=== PATIENT | female | born 1945 | race African-American/Black ===

== ENCOUNTER 2017-04-07 13:18 | Emergency (ER) | payer MEDICARE ==
[~2017-04-07] VITALS: Ht 165.1 cm; Wt 83.0 kg
[2017-04-07 13:23] VITALS: BP 176/83; PULSE 76; RESP 20; TEMP 98.4; O2SAT 97
--- NOTE | 2017-04-07 13:39 | PD ---
HPI Chief Complaint: Cold / Flu Symptoms Time Seen by Provider: 13:33 Travel History International Travel<30 days: No Contact w/Intl Traveler<30days: No Traveled to known affect area: No History of Present Illness HPI PATIENT WAS TAKING CARE OF HER GRANDKIDS WHO WERE SICK 5-7 DAYS AGO, NOW THEY ARE IMPROVING BUT NOW SHE HAS HAD 3 DAYS OF PROD COUGH (UNKNOWN SPUTUM COLOR SINCE PATIENT DOESN'T LOOK AT IT), BODY ACHES, RUNNY NOSE, (BODY ACHES GENERALIZED AND RATED 5/10). DENIES N/V/D/CP/ABDPAIN/VARGAS/....DENIES ANY ALLEVIATING/AGGRAVATING FACTORS PCP: PMHX: HYPOTHYROID, HTN AND DM PFSH Social History Tobacco Use: No Allergies-Medications (Allergen,Severity, Reaction): Coded Allergies: Penicillins (Verified Allergy, Severe, Anaphylaxis, 04/07/17) Reported Meds & Prescriptions Reported Meds & Active Scripts Active Reported Biotin 10 Mg Tab 10 Mg PO DAILY Vitamin B-12 (Cyanocobalamin) 1,000 Mcg Tab 1,000 Mcg PO DAILY Aspirin Children's (Aspirin) 81 Mg Chew 81 Mg CHEW DAILY Pantoprazole (Pantoprazole Sodium) 20 Mg Tab 20 Mg PO DAILY Levothyroxine (Levothyroxine Sodium) 50 Mcg Tab 50 Mcg PO DAILY Valsartan 160 Mg Tab 160 Mg PO DAILY Metformin (Metformin HCl) 1,000 Mg Tab 1,000 Mg PO BIDPC Vitamin D3 (Cholecalciferol) 1,000 Unit Tab 1,000 Units PO DAILY Review of Systems Except as stated in HPI: all other systems reviewed are Neg General / Constitutional: No: Fever Eyes: No: Visual changes HENT: Positive: Rhinorrhea, No: Headaches Cardiovascular: No: Chest Pain or Discomfort Respiratory: Positive: Cough, Wheezing Gastrointestinal: No: Abdominal Pain Genitourinary: No: Dysuria Musculoskeletal: No: Pain Skin: No Rash Neurologic: No: Weakness Psychiatric: No: Depression Endocrine: No: Polydipsia Hematologic/Lymphatic: No: Easy Bruising Physical Exam Narrative GENERAL: SKIN: Warm and dry. HEAD: Atraumatic. Normocephalic. EYES: Pupils equal and round. No scleral icterus. No injection or drainage. ENT: No nasal bleeding or discharge. Mucous membranes pink and moist. NECK: Trachea midline. No JVD. CARDIOVASCULAR: Regular rate and rhythm. RESPIRATORY: No accessory muscle use. WHEEZE AND RONCHI BILATERALLY, GOOD TV. GASTROINTESTINAL: Abdomen soft, non-tender, nondistended. MUSCULOSKELETAL: Extremities without clubbing, cyanosis, or edema. No obvious deformities. NEUROLOGICAL: Awake and alert. No obvious cranial nerve deficits. Motor grossly within normal limits. Five out of 5 muscle strength in the arms and legs. Normal speech. PSYCHIATRIC: Appropriate mood and affect; insight and judgment normal. Data Data Last Documented VS Vital Signs Date Time Temp Pulse Resp B/P (MAP) Pulse Ox O2 Delivery O2 Flow Rate FiO2 04/07/17 13:51 98 Room Air 04/07/17 13:42 20 04/07/17 13:23 98.4 76 176/83 (114) Orders Orders Influenzae A/B Antigen (04/07/17 13:33) Chest, Pa & Lat (04/07/17 13:33) Ecg Monitoring (04/07/17 13:33) Oximetry (04/07/17 13:33) MDM Medical Decision Making Medical Screen Exam Complete: Yes Emergency Medical Condition: Yes Medical Record Reviewed: Yes Interpretation(s) PULSE OX: NORMAL PULSE OX 98% RA, EXCELLENT PLETH WAVE Differential Diagnosis FLU V PNA V PULM EDEMA V BRONCHITIS Narrative Course FLU TEST NEGATIVE, CHEST XRAY NEG FOR MAJOR CONSOLIDATION/EFFUSION WILL GIVE OUTPATIENT TREATMENT Diagnosis Primary Impression: PLEURISY Patient Instructions: General Instructions, Pleurisy (DC) Scripts Methylprednisolone Dosepak (Medrol Dosepak) 4 Mg Dspk 4 MG PO DIRECTED, #1 DSPK 0 Refills Per Pharmacist direction Prov: Guilherme De Souza MD 04/07/17 Albuterol 18 GM Inh (Ventolin Hfa 18 GM Inh) 90 Mcg/Act Aer 2 PUFF INH Q4H Y for SHORTNESS OF BREATH, #1 INHALER 0 Refills Prov: Guilherme De Souza MD 04/07/17 Guaifenesin-Codeine Liq (Guaifenesin AC Liq) 100-10 Mg/5 Ml Syrp 10 ML PO Q6H Y for COUGH, #1 BOTTLE 0 Refills Prov: Guilherme De Souza MD 04/07/17 Ciprofloxacin (Cipro) 500 Mg Tab 500 MG PO BID for Infection for 10 Days, #20 TAB 0 Refills Prov: Guilherme De Souza MD 04/07/17 Disposition: 01 DISCHARGE HOME Condition: Stable Guilherme De Souza MD Apr 07, 2017 13:39
[2017-04-07] MEDS ORDERED: VITA100018 PO (13:48)
[2017-04-07] MEDS ORDERED: METF1000 PO (13:48)
[2017-04-07] MEDS ORDERED: VALS1TAB65 PO (13:48)
[2017-04-07] MEDS ORDERED: ASPI81CH7 CHEW (13:48)
[2017-04-07] MEDS ORDERED: VITA10002 PO (13:48)
[2017-04-07] MEDS ORDERED: PANT20TA2 PO (13:48)
[2017-04-07] MEDS ORDERED: LEVO50TA4 PO (13:48)
[2017-04-07] MEDS ORDERED: BIOT10TA PO (13:48)
[2017-04-07 13:51] VITALS: O2SAT 98
[2017-04-07 14:21] VITALS: BP 142/60; PULSE 72; RESP 20; O2SAT 97
[2017-04-07] MEDS ORDERED: GUAISYP4 PO (14:24)
[2017-04-07] MEDS ORDERED: VENTAER INH (14:24)
[2017-04-07] MEDS ORDERED: CIPR-9 PO (14:24)
[2017-04-07] MEDS ORDERED: MEDR4PAK PO (14:24)
--- NOTE | 2017-04-07 14:44 | RADRPT ---
EXAM DATE/TIME: 04/07/2017 13:40 [facility] COMPARISON: No previous studies available for comparison. INDICATIONS : Cough and flu like symptoms for 1 week. MEDICAL HISTORY : Hypertension. Diabetes mellitus type II. SURGICAL HISTORY : Right shoulder surgery. ENCOUNTER: Initial ACUITY: 1 week PAIN SCORE: 0/10 LOCATION: Bilateral chest FINDINGS: PA and lateral views of the chest show interstitial prominence in the lungs bilaterally. No intra-shant eolar infiltrates observed. No effusions. Mild eventration of the right hemidiaphragm. Heart is mildl y enlarged. Pulmonary vessels are prominent. A degenerative thoracic spine. CONCLUSION: 1. Cardiomegaly with pulmonary vascular engorgement. 2. Bilateral interstitial prominence. Early interstitial edema versus viral pneumonitis. Troy Lea Jr., MD on April 07, 2017 at 14:40 Board Certified Radiologist. This report was verified electronically.
== END 2017-04-07 14:43 | disposition home or self-care (01) ==
LOC: PHED 13:18
DX: R09.1 Pleurisy (principal); E11.9 Type 2 diabetes mellitus without complications; E03.9 Hypothyroidism, unspecified; I10 Essential (primary) hypertension; Z79.84 Long term (current) use of oral hypoglycemic drugs
CPT/HCPCS: 71020; 87804; 99284